=== PATIENT | female | born 1975 | race Caucasian/White ===

== ENCOUNTER 2016-12-01 12:49 | Inpatient (IN) ==
[2016-12-01 15:26] LABS: Basophils # 0.1 K/mcL (0.0-0.2); Basophils % 0.4 %; Eosinophils # 0.1 K/mcL (0.0-0.6); Eosinophils % 0.8 %; Hematocrit 46.8 % (35.3-44.9); Hemoglobin 15.5 g/dL (11.5-15.4); Immature Granulocytes % 0.3 % (0-4); Immature Platelets 2.9 % (1.1-6.1); Lymphocytes # 4.5 K/mcL (0.6-4.6); Lymphocytes % 37.8 %; Mean Corpuscular HGB Conc 33.1 g/dL (31.6-35.5); Mean Corpuscular Hemoglobin 31.4 pg (28.0-33.3); Mean Corpuscular Volume 94.9 fL (83.0-100.0); Monocytes # 0.7 K/mcL (0.0-1.3); Neutrophils # 6.5 K/mcL (1.6-8.9); Platelet Count 312 K/mcL (140-400); Red Blood Count 4.93 M/mcL (3.82-4.97); Red Cell Distribution Width 12.7 % (11.5-14.5); Segmented Neutrophils % 54.7 %
[2016-12-01 15:39] LABS: Alanine Aminotransferase 14 Units/L (0-55); Albumin 4.2 g/dL (3.5-5.0); Albumin/Globulin Ratio 1.1 (1.1-2.2); Alkaline Phosphatase 75 Units/L (38-126); Aspartate Amino Transferase 18 Units/L (5-34); BUN/Creatinine Ratio 13 (6-26); Bilirubin,Total 0.4 mg/dL (0.2-1.2); Blood Urea Nitrogen 9 mg/dL (7-20); Calcium 9.9 mg/dL (8.6-10.8); Carbon Dioxide 25 mEq/L (19-29); Chloride 106 mEq/L (98-109); Globulin 3.8 g/dL (2.4-3.5); Glucose 81 mg/dL (70-99); Osmolality,Calculated 290 (280-300); Potassium 4.1 mEq/L (3.5-4.5); Sodium 141 mEq/L (136-145); eGFR For African Americans > 60 (> 60); eGFR For Non-African Americans > 60 (> 60)
[2016-12-01] MEDS ORDERED: Ondansetron 4 MG/2 ML VIAL IVP ONE ×2 (15:45→19:29)
[2016-12-01] MEDS ORDERED: 0.9 % Sodium Chloride 1,000 ML IVC ONE (15:45)
[2016-12-01] MEDS ORDERED: *HR* Morphine 2 MG/ML SYRINGE IVP ONE (15:45)
[2016-12-01 15:56] LABS: Bilirubin,Urine Small (Negative); Blood,Urine Negative (Negative); Clarity,Urine Cloudy (Clear); Color,Urine Dark Yellow (Yellow); Glucose,Urine (UA) Normal (Normal); Ketones,Urine Trace mg/dL (Negative); Leukocyte Esterase,Urine Moderate (Negative); Nitrite,Urine Negative (Negative); Protein,Urine Trace mg/dL (Neg-Trace); Specific Gravity,Urine 1.023 (1.010-1.025); Urobilinogen,Urine Normal (Normal)
[2016-12-01 16:02] LABS: Bacteria,Urine Few per hpf (None-Few); RBC,Urine 0-3 per hpf (0-3); Squamous Epithelial Cell,Urine Many per lpf (None-Few); WBC,Urine 30-50 per hpf (0-3)
[2016-12-01 16:14] LABS: Mucus,Urine Moderate (Few); Yeast,Urine Few per hpf (None Seen)
--- NOTE | 2016-12-01 17:31 | Emergency Department Note ---
Disposition Clinical Impression: Right upper quadrant pain, Intractable abdominal pain Abdominal pain Qualifiers: Abdominal location: right upper quadrant Qualified Code(s): R10.11 - Right upper quadrant pain Disposition: Admitted As Inpatient Condition: Good Referrals: NO,PCP [Non-Partnered Physician] - Forms: Work/School Release, ED Satisfaction Letter Time of Disposition: 19:28 Abdominal Pain HPI - General Chief Complaint: ED Abdominal Pain Stated Complaint: abd pain, distention Time Seen by Provider: 12/01/16 13:58 Source: patient Mode of arrival: ambulatory Limitations: no limitations Nursing Notes Reviewed: Yes Vital Signs Reviewed: Yes - History of Present Illness HPI Narrative: Patient presents to emergency room complaining of right upper quadrant abdominal pain. Symptom onset was the last 24-48 hours. She has had inability to eat or drink anything for the last 3 days. Pain and progressed over the last 2 days. She denies any fevers or chills has had intermittent nausea and vomiting no diarrhea. Denies any chest pain shortness of breath headache or vision change. She has a history of infection or gallbladder in the past and thought that this might be a similar issue at this time. Denies any trauma or injuries Pt Subjective Complaint: abdominal pain Onset (ago): day(s) Consistency: constant Location: RUQ Pain Severity: moderate Pain Scale: 10 Quality: cramping, stabbing Radiation: RUQ, epigastric Migration to: no migration Improves with: nothing Worsens with: eating, vomiting, movement Context: history of similar episodes Associated symptoms: Reports: nausea, vomiting, chills, anorexia. Denies: diarrhea, fever, constipation, dysuria, hematemesis, hematochezia, melena, hematuria Treatments prior to arrival: none - Related Data Home Medications Medication Instructions Recorded Confirmed Amitriptyline HCl 150 mg PO HS 08/27/16 08/27/16 Butalbital/Aspirin/Caffeine 1 cap PO DAILY PRN 08/27/16 08/27/16 [Fiorinal 50-325-40 mg Capsule] Ferrous Sulfate [Iron] 325 mg PO DAILY 08/27/16 08/27/16 Gabapentin [Neurontin] 100 mg PO TID 08/27/16 08/27/16 Multivitamin [One Daily Essential] 1 tab PO DAILY 08/27/16 08/27/16 Oxycodone HCl/Acetaminophen 1 tab PO Q6HR PRN 08/27/16 08/27/16 [Percocet 5-325 mg Tablet] Promethazine [Phenergan] 25 mg PO Q12H PRN 08/27/16 08/27/16 Ranitidine HCl [Zantac] 150 mg PO BID 08/27/16 08/27/16 SUMAtriptan succinate [Imitrex] 6 mg SQ ONCE PRN 08/27/16 08/27/16 Tizanidine HCl 4 mg PO BID 08/27/16 08/27/16 Trazodone HCl 150 mg PO HS 08/27/16 08/27/16 diazePAM [Valium] 5 mg PO QID 08/27/16 08/27/16 Previous Rx's Medication Instructions Recorded Oxycodone HCl/Acetaminophen 1 each PO Q6HR PRN #28 tablet 08/27/16 [Percocet 10-325 mg Tablet] Allergies Allergy/AdvReac Type Severity Reaction Status Date / Time aripiprazole [From Abilify] Allergy Rash Verified 08/27/16 07:07 codeine Allergy See Verified 08/19/16 11:34 Comments haloperidol [From Haldol] Allergy Rash Verified 08/27/16 07:07 quetiapine [From Seroquel] Allergy Rash Verified 08/27/16 07:07 [place] Allergy Anaphylaxis Verified 08/19/16 11:34 Sulfa (Sulfonamide Allergy See Verified 08/19/16 11:34 Antibiotics) Comments All systems ED: reviewed and negative except as stated. Review of Systems: As Per HPI Constitutional: Reports: chills. Denies: fever Cardiovascular: Denies: chest pain, palpitations, dyspnea on exertion, orthopnea , edema Respiratory: Denies: cough, dyspnea, wheezes, hemoptysis, stridor, sputum production Gastrointestinal: Reports: abdominal pain, nausea, vomiting. Denies: diarrhea, constipation Genitourinary: Denies: urgency, dysuria Musculoskeletal: Denies: back pain, neck pain Neurological: Denies: headache Psychiatric: Denies: anxiety Abdominal Pain PMH - Past Medical History Medical history: Reports: migraine Female Surgical History: Reports: hysterectomy, other Psychiatric history: Reports: anxiety - Social History Smoking status: Current every day smoker Alcohol use: Reports: rarely Drug use: Reports: marijuana Physical Exam - General Limitations: no limitations General appearance: alert - Neck Neck exam: Present: normal inspection, full ROM, trachea midline. Absent: tenderness, meningismus, lymphadenopathy - Chest Chest inspection: Present: normal inspection, symmetric chest wall rise. Absent : tenderness - Respiratory Respiratory exam: Present: normal lung sounds bilaterally - Cardiovascular Cardiovascular exam: Present: regular rate, normal rhythm, normal heart sounds - Abdominal Exam Abdominal exam: Present: soft, Non-Tender, normal bowel sounds, Boo's sign. Absent: tenderness, distention, guarding, rebound, rigidity, Rovsing's sign, tenderness at McBurney's Point, pulsatile mass, hernia - Extremities Exam Extremities exam: Present: normal inspection, full ROM, normal capillary refill. Absent: tenderness - Back Exam Back exam: Present: normal inspection, full ROM. Absent: tenderness, CVA tenderness (R), CVA tenderness (L) - Neurological Exam Neurological exam: Present: alert, oriented X3, CN II-XII intact, normal gait - Skin Skin exam: Present: warm, dry, intact, normal color Course Course Narrative: Patient seen and examined with some arrival. See history of present illness. 40-year-old female presents with 3 days worth of anorexia home along with right upper quadrant abdominal pain. His progressive for now that she is unable to eat or drink anything at all. She has had intermittent chills but no fevers. Denies any chest pain shortness of breath headache vision changes or diarrhea. Main complaint on presentation his abdominal discomfort and pain with anorexia. Denies any trauma or injuries. She does have a history of what she described as a gallbladder infection that was not treated with surgical intervention. Patient denies any significant alcohol use she is a smoker denies any drugs of abuse at this time. Physical exam lungs are clear heart is regular abdomen is soft but tenderness is noted in the right upper quadrant concerning for positive Boo sign. There is no pulsatile lesions noted she does not have any signs of hernia bowel sounds are present all 4 quadrants she has no peritoneal symptoms or guarding noted on this exam except for the above-noted issues right upper quadrant. Patient was all 4 extremities with purpose. Symptoms appear to be at least initially concerning for possible gallbladder related disease or pancreatitis. Labs were ordered on the trails process and does not show any acute signs of elevated lipase or intra-abdominal obstructive pathology. The remainder of her labs are normal except for mildly elevated white blood cell count. Chest x-ray ordered along with EKG LFTs lipase urinalysis CBC and chemistry at this time. Right upper quadrant ultrasound ordered. Fluids premedication nausea medication to be given. Disposition pending workup and treatment course. Patient family and the patient went for another couple this plan - Reevaluation(s) Reevaluation #1: Patient has concerning findings on ultrasound with mildly dilated common bile duct and biliary sludge. Concerns are noted for choledocholithiasis although no stone was seen. CT imaging of the abdomen are this time considering there is no signs of obstructive pathology based on the laboratory workup at this point. Disposition pending symptom control and CT imaging at this time Time: 18:04 Reevaluation #2: CT imaging as well as the ultrasound findings were reviewed with the on-call surgeon. Recommend admission for medical management this time to transient liver function testing and then consultation either GI or surgery if the symptoms present themselves. Patient still having significant pain. Admission process to be completed this time for intractable pain with concern for early cholecystitis or biliary colic. Time: 19:27 Reevaluation #3: Patient discussed with the hospitalist Dr. lock. We reviewed the presentation symptoms and conversation I had with the on-call surgeon Dr. Hankins. Currently the patient will not be consult to do surgery but will have repeat LFTs and laboratory workup. At the symptoms progress or changes will determine whether this is surgical case for a gastroenterology case. Patient informed of this. Premedication nausea medication given repeat dose at this time. No other concerns or recommendations noted during this treatment course from the hospitals. We will continue to monitor in emergency room until the admission process is completed. Time: 19:52 Vital Signs Temperature 97.6 F 12/01/16 12:51 Pulse Rate 101 12/01/16 12:51 Respiratory Rate 12/01/16 12:51 Blood Pressure 144/101 12/01/16 12:51 O2 Sat by Pulse Oximetry 96 12/01/16 12:51 Temperature 97.6 F 12/01/16 12:51 Pulse Rate 83 12/01/16 16:44 Respiratory Rate 16 12/01/16 16:44 Blood Pressure 123/104 12/01/16 16:44 O2 Sat by Pulse Oximetry 96 12/01/16 16:44 Oxygen Delivery Oxygen Delivery Room Air Abdominal Pain - MDM Narrative Medical decision making narrative: Right upper quadrant abdominal pain. Nausea, vomiting - Medical Records Medical records reviewed: Yes I reviewed the patient's medical records. - Lab Data Lab results reviewed: Yes I reviewed the patient's lab results. Result diagrams: 12/01/16 15:18 12/01/16 15:18 Lab Results 12/01/16 12/01/16 12/01/16 Range/Units 15:18 15:18 15:48 WBC 11.9 H (4.3-11.1) K/mcL RBC 4.93 (3.82-4.97) M/mcL Hgb 15.5 H (11.5-15.4) g/dL Hct 46.8 H (35.3-44.9) % MCV 94.9 (83.0-100.0) fL MCH 31.4 (28.0-33.3) pg MCHC 33.1 (31.6-35.5) g/dL RDW 12.7 (11.5-14.5) % Plt Count 312 (140-400) K/mcL MPV 9.0 L (9.4-12.4) fL Immature Gran % 0.3 (0-4) % Seg Neutrophils % 54.7 % Lymphocytes % 37.8 % Monocytes % 6.0 % Eosinophils % 0.8 % Basophils % 0.4 % Neutrophils # 6.5 (1.6-8.9) K/mcL Lymphocytes # 4.5 (0.6-4.6) K/mcL Monocytes # 0.7 (0.0-1.3) K/mcL Eosinophils # 0.1 (0.0-0.6) K/mcL Basophils # 0.1 (0.0-0.2) K/mcL Immature Plt Fraction 2.9 (1.1-6.1) % Sodium 141 (136-145) mEq/L Potassium 4.1 (3.5-4.5) mEq/L Chloride 106 (98-109) mEq/L Carbon Dioxide 25 (19-29) mEq/L BUN 9 (7-20) mg/dL Creatinine 0.71 (0.57-1.11) mg/dL Est GFR ( Amer) > 60 (> 60) Est GFR (Non-Af Amer) > 60 (> 60) BUN/Creatinine Ratio 13 (6-26) Glucose 81 (70-99) mg/dL Calculated Osmolality 290 (280-300) Calcium 9.9 (8.6-10.8) mg/dL Total Bilirubin 0.4 (0.2-1.2) mg/dL AST 18 (5-34) Units/L ALT 14 (0-55) Units/L Alkaline Phosphatase 75 (38-126) Units/L Serum Total Protein 8.0 (6.0-8.3) g/dL Albumin 4.2 (3.5-5.0) g/dL Globulin 3.8 H (2.4-3.5) g/dL Albumin/Globulin Ratio 1.1 (1.1-2.2) Lipase (8-78) Units/L Urine Color Dark Yellow (Yellow) Urine Clarity Cloudy A (Clear) Urine pH 6.0 (5.0-8.0) pH Units Ur Specific Diamond 1.023 (1.010-1.025) Urine Protein Trace (Neg-Trace) mg/dL Urine Glucose (UA) Normal (Normal) mg/dL Urine Ketones Trace H (Negative) mg/dL Urine Blood Negative (Negative) Urine Nitrite Negative (Negative) Urine Bilirubin Small H (Negative) Urine Urobilinogen Normal (Normal) mg/dL Ur Leukocyte Esterase Moderate H (Negative) Urine Microscopic RBC 0-3 (0-3) per hpf Urine Microscopic WBC 30-50 H (0-3) per hpf Ur Squamous Epith Cells Many H (None-Few) per lpf Urine Bacteria Few (None-Few) per hpf Hyaline Casts Test Not Performed Urine Mucus Moderate H (Few) Urine Yeast Few H (None Seen) per hpf Ur Culture Indicated? YES A (NO) Urine Test (Negative) 12/01/16 12/01/16 Range/Units 15:48 16:04 WBC (4.3-11.1) K/mcL RBC (3.82-4.97) M/mcL Hgb (11.5-15.4) g/dL Hct (35.3-44.9) % MCV (83.0-100.0) fL MCH (28.0-33.3) pg MCHC (31.6-35.5) g/dL RDW (11.5-14.5) % Plt Count (140-400) K/mcL MPV (9.4-12.4) fL Immature Gran % (0-4) % Seg Neutrophils % % Lymphocytes % % Monocytes % % Eosinophils % % Basophils % % Neutrophils # (1.6-8.9) K/mcL Lymphocytes # (0.6-4.6) K/mcL Monocytes # (0.0-1.3) K/mcL Eosinophils # (0.0-0.6) K/mcL Basophils # (0.0-0.2) K/mcL Immature Plt Fraction (1.1-6.1) % Sodium (136-145) mEq/L Potassium (3.5-4.5) mEq/L Chloride (98-109) mEq/L Carbon Dioxide (19-29) mEq/L BUN (7-20) mg/dL Creatinine (0.57-1.11) mg/dL Est GFR ( Amer) (> 60) Est GFR (Non-Af Amer) (> 60) BUN/Creatinine Ratio (6-26) Glucose (70-99) mg/dL Calculated Osmolality (280-300) Calcium (8.6-10.8) mg/dL Total Bilirubin (0.2-1.2) mg/dL AST (5-34) Units/L ALT (0-55) Units/L Alkaline Phosphatase (38-126) Units/L Serum Total Protein (6.0-8.3) g/dL Albumin (3.5-5.0) g/dL Globulin (2.4-3.5) g/dL Albumin/Globulin Ratio (1.1-2.2) Lipase 16 (8-78) Units/L Urine Color (Yellow) Urine Clarity (Clear) Urine pH (5.0-8.0) pH Units Ur Specific Diamond (1.010-1.025) Urine Protein (Neg-Trace) mg/dL Urine Glucose (UA) (Normal) mg/dL Urine Ketones (Negative) mg/dL Urine Blood (Negative) Urine Nitrite (Negative) Urine Bilirubin (Negative) Urine Urobilinogen (Normal) mg/dL Ur Leukocyte Esterase (Negative) Urine Microscopic RBC (0-3) per hpf Urine Microscopic WBC (0-3) per hpf Ur Squamous Epith Cells (None-Few) per lpf Urine Bacteria (None-Few) per hpf Hyaline Casts Urine Mucus (Few) Urine Yeast (None Seen) per hpf Ur Culture Indicated? (NO) Urine Test Negative (Negative) - Radiology Data Radiology results reviewed: Yes I reviewed the patient's radiology results. Ultrasound is concerning for choledocholithiasis with mildly dilated common bile duct. CT imaging - EKG Data EKG attestation: Yes I reviewed and interpreted this EKG. EKG shows normal: sinus rhythm, axis, intervals, QRS complexes, ST-T waves Rate: normal Rhythm: NSR [place]/QRS: normal When compared to previous EKG there are: previous EKG unavailable Interpretation: normal EKG
[2016-12-01] MEDS ORDERED: *HR* HYDROmorphone (PF) 1 MG/ML SYRINGE IVP ONE ×2 (17:58→19:28)
[2016-12-01] MEDS ORDERED: Naloxone 0.4 MG/ML INJ IVP PRN (21:39)
--- NOTE | 2016-12-01 21:48 | Internal Med History&Physical ---
Date of Encounter: 12/01/16 Time of Encounter: 21:30 Assessment and Plan (1) Intractable abdominal pain Current visit: Yes Status: Acute Acute RUQ and epigastric pain associated with nausea and vomiting - possible early cholecystitis or biliary colic NPO, IV fluids, IV Morphine as needed for pain, IV Zofran when necessary IV Protonix, empiric IV Flagyl, IV Cipro EKG - normal sinus rhythm with no acute ST-T changes Chest x-ray - no acute process CT abdomen and pelvis - no acute abnormality, normal appendix Lipase - 16 LFTs - within normal limits Urinalysis - moderate amount of leukocyte esterase US gallbladder - mildly dilated common bile duct, without significant intrahepatic biliary dilation, small amount of gallbladder sludge without evidence of cholelithiasis or acute cholecystitis Patient may need further evaluation with MRCP for possible choledocholithiasis Gastroenterology consult pending Labs in a.m. (2) Chronic back pain Current visit: Yes Status: Chronic Chronic back pain - patient is on ibuprofen, gabapentin and tizanidine at home Qualifiers: Back pain location: low back pain Back pain laterality: bilateral Sciatica presence: without sciatica Qualified Code(s): M54.5 - Low back pain; G89.29 - Other chronic pain (3) Depression with anxiety Current visit: Yes Status: Chronic Depression with anxiety - patient takes amitriptyline, Xanax and trazodone at home (4) Migraine headache Current visit: Yes Status: Chronic Chronic migraine headaches - patient takes Imitrex and Fiorinal at home Qualifiers: Migraine type: without aura Status migrainosus presence: without status migrainosus Intractability: not intractable Qualified Code(s): G43.009 - Migraine without aura, not intractable, without status migrainosus (5) Tobacco abuse Current visit: Yes Status: Chronic Patient smokes about half pack of cigarettes daily - has been smoking for almost 20 years Counseled about cessation, nicotine patch (6) DVT prophylaxis Current visit: Yes Status: Acute Continue heparin subcutaneous Internal Medicine - H&P: HPI Chief complaint: Abdominal pain and vomiting Admitted From: Emergency Dept Plans for Post Hospital Care: Home History of present illness: Ms. Alicea is a 40 year old female with past medical history of anxiety, depression, chronic back pain, migraine headaches and history of possible endometrial cancer status post hysterectomy. Patient presents to the ED with complaints of abdominal pain and vomiting. On examination patient is awake and alert. Not in any distress. Able to provide history. No family members at bedside. Patient is in obvious discomfort due to abdominal pain. She states abdominal pain started about 5 days ago and is gradually worsened. She also developed nausea and vomiting about 4 days ago. Had several episodes of vomiting. Symptoms are worse with food intake. No alleviating factors. Patient states she has not had any by mouth intake for the past 4 days. She also complains of diarrhea. She states her emesis is yellow colored, denies any blood. Abdominal pain seems to be mainly in the epigastric region and RUQ region, and radiates to both sides and to her back. She describes the pain as sharp and cramping and almost constant. She rates it a 9 out of 10. Patient states she was initially thinking about coming to the ER over the past few days but finally decided to come today because she could not take it anymore. Also complains of subjective fever and chills. Denies chest pain a month denies shortness of breath, denies palpitations, denies cough or dizziness or headache. No other associated symptoms. Initial ED evaluation revealed slightly elevated white count. CT of the abdomen and pelvis revealed no acute abnormality. Chest x-ray is negative. Ultrasound gallbladder revealed a mildly dilated common bile duct without significant intrahepatic biliary dilation and small amount of sludge in the gallbladder without evidence of cholelithiasis or acute cholecystitis. Patient is being admitted for intractable RUQ pain and nausea and vomiting. Patient will be nothing by mouth, continue IV fluids and empiric antibiotics. Morphine as needed for pain and Zofran as needed for nausea and vomiting. Patient has been explained about her condition and plan of care. She understood and agreed. No unanswered questions. CODE STATUS full code. Past Med Surg Social Fam HX - Past Medical History Medical history: migraine, other (Chronic back pain) Psychiatric history: anxiety, depression - Past Surgical History Surgical History: , hysterectomy, orthopedic, other (Left ankle fracture repair, right leg fracture repair), JANET/BSO - Social History Smoking Status: Current every day smoker Smokeless Tobacco Status: No Alcohol use: rarely Drug use: marijuana - Family History Mother Hx Family Medical Disorders: Yes (Diabetes) Internal Medicine - H&P: Meds Amitriptyline HCl 150 mg PO HS 08/27/16 [History] Butalbital/Aspirin/Caffeine [Fiorinal 50-325-40 mg Capsule] 1 cap PO DAILY PRN 08/27/16 [History] Promethazine [Phenergan] 25 mg PO Q12H PRN 08/27/16 [History] Ranitidine HCl [Zantac] 150 mg PO BID 08/27/16 [History] SUMAtriptan succinate [Imitrex] 6 mg SQ ONCE PRN 08/27/16 [History] Tizanidine HCl 4 mg PO BID 08/27/16 [History] Trazodone HCl 300 mg PO HS 08/27/16 [History] ALPRAZolam [Xanax 0.5 MG Tablet] 0.5 mg PO BID 12/01/16 [History] Gabapentin [Neurontin] 300 mg PO TID 12/01/16 [History] Ibuprofen [Ibuprofen] 800 mg PO TID PRN 12/01/16 [History] Allergies aripiprazole [From Abilify] Allergy (Verified 12/01/16 19:58) Rash codeine Allergy (Verified 12/01/16 19:58) See Comments RASH haloperidol [From Haldol] Allergy (Verified 12/01/16 19:58) Rash quetiapine [From Seroquel] Allergy (Verified 12/01/16 19:58) Rash [place] Allergy (Verified 12/01/16 19:58) Anaphylaxis Sulfa (Sulfonamide Antibiotics) Allergy (Verified 12/01/16 19:58) See Comments RASH All Systems PM: A 10-system review of systems was performed and is negative for pertinent findings except as documented above in the HPI. - Constitutional Constitutional: fatigue, fever(s), weakness - EENT Eyes: no blurry vision - Cardiovascular Cardiovascular ROS IM: no chest pain, no diaphoresis, no dyspnea, no dyspnea on exertion, no edema, no lightheadedness, no orthopnea, no syncope - Respiratory Respiratory: no cough, no dyspnea, no hemoptysis, no dyspnea on exertion, no wheezing, no chest congestion - Gastrointestinal Gastrointestinal: abdominal pain, cramping, diarrhea, dyspepsia, loose stools, nausea, vomiting, no bloating, no hematochezia, no melena - Genitourinary Genitourinary: no dysuria - Musculoskeletal Musculoskeletal ROS IM: back pain - Neurological Neurological ROS: no abnormal gait, no abnormal speech, no confusion, no dizziness, no focal weakness, no numbness, no tingling - Psychiatric Psychiatric: anxiety, depression - Constitutional Vitals: Temp Pulse Resp BP Pulse Ox 98.3 F 67 16 155/84 96 12/01/16 21:04 12/01/16 21:04 12/01/16 21:04 12/01/16 21:04 12/01/16 21:04 General appearance: Present: A&O X 3, no acute distress, answers questions appropriately Exam: Gen. well-appearing, in discomfort due to abdominal pain - Head Head exam: Present: atraumatic - Eye Eye exam: Present: EOMI - ENT ENT exam: Present: mucous membranes dry - Neck Neck exam general surgery: Present: supple - Respiratory Respiratory exam: Present: CTAB. Absent: rales, rhonchi, wheezes, tachypnea - Cardiovascular Cardiovascular exam: Present: RRR, +S1, +S2 - GI/Abdominal GI/Abdominal exam: Present: rebound (Right upper quadrant), soft, tenderness ( Tenderness in epigastric region and right upper quadrant region), no peritoneal signs. Absent: distended, firm, guarding, rigid Additional comments: Bowel sounds present in all 4 quadrants. - Extremities Exam Extremities exam: Present: radial pulses palpable and symetrical. Absent: cyanotic, pedal edema, tenderness - Neurological Exam Neurological exam: Present: alert, oriented X3, no focal deficits. Absent: facial droop, speech deficit Internal Med - H&P Results - Labs CBC & Chem 7: 12/01/16 15:18 12/01/16 15:18
[2016-12-01] MEDS: *HR* Morphine 2 MG/ML SYRINGE IVP PRN (22:17)
[2016-12-01] MEDS: Pantoprazole 40 MG VIAL IVP SCH (22:17)
[2016-12-01] MEDS: Ondansetron 4 MG/2 ML VIAL IVP PRN (22:17)
[2016-12-01] MEDS: 0.9 % Sodium Chloride 1,000 ML IVC SCH (22:36)
[2016-12-02] MEDS ORDERED: *HR* HYDROmorphone (PF) 1 MG/ML SYRINGE IVP ONE (00:23)
[2016-12-02] MEDS: *HR* LORazepam 2 MG/ML VIAL IVP PRN ×2 (00:31→09:03)
[2016-12-02] MEDS: Nicotine 14 MG PATCH.TD24 TD SCH ×2 (00:32→08:24)
[2016-12-02] MEDS: MetroNIDAZOLE 500 MG/100 ML 500 MG/100 ML BAG IVPB SCH ×4 (00:32→23:32)
[2016-12-02] MEDS: *HR* Morphine 2 MG/ML SYRINGE IVP PRN ×2 (02:15→06:10)
[2016-12-02] MEDS ORDERED: *HR* Promethazine 25 MG/ML VIAL IVP ONE ×2 (02:29→17:34)
[2016-12-02] MEDS: *HR* Heparin 5,000 UNIT/ML VIAL SQ SCH ×2 (06:11→18:23)
[2016-12-02 08:18] LABS: Prothrombin Time 11.2 Seconds (9.4-12.1)
[2016-12-02 08:20] LABS: Hematocrit 42.2 % (35.3-44.9); Mean Corpuscular Hemoglobin 31.3 pg (28.0-33.3); Mean Corpuscular Volume 97.7 fL (83.0-100.0); Mean Platelet Volume 9.7 fL (9.4-12.4); Platelet Count 243 K/mcL (140-400); Red Blood Count 4.32 M/mcL (3.82-4.97); Red Cell Distribution Width 12.6 % (11.5-14.5)
[2016-12-02] MEDS: Pantoprazole 40 MG VIAL IVP SCH ×2 (08:23→20:42)
[2016-12-02 08:33] LABS: Alanine Aminotransferase 12 Units/L (0-55); Albumin 3.4 g/dL (3.5-5.0); Albumin/Globulin Ratio 1.1 (1.1-2.2); Alkaline Phosphatase 60 Units/L (38-126); Aspartate Amino Transferase 17 Units/L (5-34); BUN/Creatinine Ratio 16 (6-26); Blood Urea Nitrogen 12 mg/dL (7-20); Calcium 8.7 mg/dL (8.6-10.8); Carbon Dioxide 23 mEq/L (19-29); Chloride 107 mEq/L (98-109); Chol/HDL Ratio 3.9 (0-4.9); Cholesterol 181 mg/dL (< 200); Glucose 85 mg/dL (70-99); HDL Cholesterol 47 mg/dL (40-59); LDL Cholesterol,Calculated 110 mg/dL (0-99); Magnesium 1.7 mg/dL (1.6-2.6); Osmolality,Calculated 285 (280-300); Potassium 3.7 mEq/L (3.5-4.5); Sodium 138 mEq/L (136-145); Total Protein 6.4 g/dL (6.0-8.3); Triglycerides 118 mg/dL (< 150); eGFR For African Americans > 60 (> 60); eGFR For Non-African Americans > 60 (> 60)
[2016-12-02 08:39] LABS: Hemoglobin 13.5 g/dL (11.5-15.4)
[2016-12-02] MEDS ORDERED: *HR* HYDROmorphone (PF) 1 MG/ML SYRINGE IVP PRN (09:23)
[2016-12-02 09:29] LABS: Bilirubin,Total 0.4 mg/dL (0.2-1.2)
[2016-12-02] MEDS ORDERED: SUMAtriptan 6 MG/0.5 ML SQ PRN (10:59)
[2016-12-02] MEDS: *HR* HYDROmorphone (PF) 1 MG/ML SYRINGE IVP PRN ×3 (11:30→20:42)
[2016-12-02] MEDS: Ondansetron 4 MG/2 ML VIAL IVP PRN ×2 (11:30→20:42)
[2016-12-02] MEDS: 0.9 % Sodium Chloride 1,000 ML IVC SCH (15:25)
--- NOTE | 2016-12-02 16:49 | Internal Med Progress Note ---
Date of Encounter: 12/02/16 Time of Encounter: 11:00 - Assessment and plan (1) Right upper quadrant pain Current Visit: Yes Status: Acute Assessment and plan: CT abdomen/pelvis showed no acute abnormality. Right upper quadrant ultrasound shows gallbladder sludge, mild delegation of CBD at 7 mm, with no definitive evidence of gallstones or acute cholecystitis. Continue bowel rest and IV hydration. We will change pain medications to IV Dilaudid 1 mg every 4 hours as needed. Supportive care and when necessary antiemetics. Case discussed with GI, plan for EGD today to rule out gastritis/peptic ulcer disease due to epigastric tenderness. Follow-up MRCP. (2) Chronic back pain Current Visit: Yes Status: Chronic Assessment and plan: Continue pain control as above. Patient is noted to be on muscle relaxants and gabapentin at home. Qualifiers: Back pain location: low back pain Back pain laterality: bilateral Sciatica presence: without sciatica Qualified Code(s): M54.5 - Low back pain; G89.29 - Other chronic pain (3) Depression with anxiety Current Visit: Yes Status: Chronic Assessment and plan: Continue home regimen of antidepressants, anxiolytics and psychotropic medications. (4) Migraine headache Current Visit: Yes Status: Acute Assessment and plan: Will give 1 dose of subcutaneous sumatriptan and continue to monitor. Qualifiers: Migraine type: without aura Status migrainosus presence: without status migrainosus Intractability: not intractable Qualified Code(s): G43.009 - Migraine without aura, not intractable, without status migrainosus (5) Tobacco abuse Current Visit: Yes Status: Chronic Assessment and plan: Continue nicotine transdermal patch. - Subjective Interval history: Noted to be crying due to severe abdominal pain. Reports no relief from IV morphine or Dilaudid, requests to increase the dose of pain medication. Also reports severe migraine headache and requests Imitrex. - Constitutional Vitals: Temp Pulse Resp BP Pulse Ox 98.1 F 71 16 115/78 97 12/02/16 15:00 12/02/16 15:00 12/02/16 15:00 12/02/16 15:00 12/02/16 15:00 General appearance: Present: mild distress, A&O X 3, answers questions appropriately - Respiratory Respiratory exam: Present: CTAB. Absent: accessory muscle use, rales, rhonchi, wheezes - Cardiovascular Cardiovascular exam: Present: RRR, +S1, +S2. Absent: diastolic murmur, gallop, rubs, systolic murmur - GI/Abdominal GI/Abdominal exam: Present: normal bowel sounds, soft (Mild tenderness noted in the epigastrium and right upper quadrant. No guarding or rigidity. No rebound tenderness.), no peritoneal signs. Absent: distended, tenderness - Extremities Exam Extremities exam: Present: full ROM, warm, radial pulses palpable and symetrical. Absent: calf tenderness, cyanotic, pedal edema Internal Medicine: Result - Labs CBC & Chem 7: 12/02/16 07:56 12/02/16 07:56 Labs: Short CBC 12/02/16 Range/Units 07:56 WBC 9.3 (4.3-11.1) K/mcL Hgb 13.5 D (11.5-15.4) g/dL Hct 42.2 (35.3-44.9) % Plt Count 243 (140-400) K/mcL BMP 12/02/16 07:56 Sodium 138 Potassium 3.7 Chloride 107 Carbon Dioxide 23 BUN 12 Creatinine 0.75 Glucose 85 Calcium 8.7 Liver Function 12/02/16 Range/Units 07:56 Total Bilirubin 0.4 (0.2-1.2) mg/dL AST 17 (5-34) Units/L ALT 12 (0-55) Units/L Alkaline Phosphatase 60 (38-126) Units/L Albumin 3.4 L (3.5-5.0) g/dL - ABG Interpretation ABG results: PT/INR, D-dimer PT 11.2 Seconds (9.4-12.1) 12/02/16 07:56 - Impressions Impressions Abdomen MRI 12/02/16 10:19 IMPRESSION: No cholelithiasis or choledocholithiasis Suspected renal cyst D/ / Germain Wilson MD / Germain Wilson MD Interpreting Provider: Germain Wilson MD Consult Discharge Plan - Plan Referrals: Haroon Aranda MD [Primary Care Provider] -
[2016-12-02] MEDS ORDERED: *HR* Midazolam HCl 5 MG/5 ML VIAL IVP ONE (17:07)
[2016-12-02] MEDS ORDERED: *HR* FentaNYL (PF) 100 MCG/2 ML VIAL ONE (17:07)
[2016-12-02] MEDS ORDERED: Simethicone 40 MG/0.6 ML MLS IR ONE (17:15)
[2016-12-02] MEDS ORDERED: Tetracaine/Benzocaine/Butamben 200MG/SPRAY (100SPY/BOT) MM ONE (17:15)
[2016-12-02] MEDS: *HR* FentaNYL (PF) 100 MCG/2 ML VIAL IVP PRN ×3 (17:20→17:25)
[2016-12-02] MEDS: *HR* Midazolam HCl 5 MG/5 ML VIAL IVP PRN ×3 (17:20→17:25)
[2016-12-02] MEDS ORDERED: *HR* Promethazine 25 MG/ML VIAL ONE (17:29)
--- NOTE | 2016-12-02 17:39 | Electrocardiograph Report ---
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
--- NOTE | 2016-12-02 18:09 | Event Note ---
Date of Encounter: 12/02/16 Time of Encounter: 15:00 Pt seen, full consult to follow. Patient with on and off abdominal pain that would respond to Zantac now presented with acute onset of upper abdominal pain. This take NSAIDs and was taking it more frequently for her left ankle pain. Rule out peptic ulcer disease NSAID-induced. Recommendation EGD and if negative then she will need the surgical input for possible gallbladder etiology.
[2016-12-02] MEDS ORDERED: *HR* Morphine 2 MG/ML SYRINGE IVP ONE (18:14)
[2016-12-02] MEDS: traZODone 50 MG TABLET PO SCH (20:42)
[2016-12-02] MEDS: Gabapentin 300 MG CAPSULE PO SCH (20:43)
[2016-12-02] MEDS: Sucralfate 1 GM TABLET PO SCH (20:43)
[2016-12-03 05:16] LABS: Basophils % 0.6 %; Eosinophils # 0.2 K/mcL (0.0-0.6); Eosinophils % 2.8 %; Hematocrit 37.4 % (35.3-44.9); Hemoglobin 12.3 g/dL (11.5-15.4); Immature Granulocytes % 0.2 % (0-4); Lymphocytes # 3.6 K/mcL (0.6-4.6); Lymphocytes % 56.1 %; Mean Corpuscular HGB Conc 32.9 g/dL (31.6-35.5); Mean Corpuscular Hemoglobin 32.9 pg (28.0-33.3); Mean Platelet Volume 9.7 fL (9.4-12.4); Monocytes # 0.5 K/mcL (0.0-1.3); Neutrophils # 2.1 K/mcL (1.6-8.9); Platelet Count 255 K/mcL (140-400); Red Blood Count 3.74 M/mcL (3.82-4.97); Red Cell Distribution Width 12.7 % (11.5-14.5); Segmented Neutrophils % 32.3 %
[2016-12-03] MEDS: 0.9 % Sodium Chloride 1,000 ML IVC SCH (05:20)
[2016-12-03] MEDS: *HR* Heparin 5,000 UNIT/ML VIAL SQ SCH ×2 (05:20→18:05)
[2016-12-03] MEDS: *HR* HYDROmorphone (PF) 1 MG/ML SYRINGE IVP PRN ×2 (05:36→19:10)
[2016-12-03] MEDS: Sucralfate 1 GM TABLET PO SCH ×4 (05:36→22:45)
[2016-12-03] MEDS ORDERED: ASPIRIN PO PRN (08:19)
[2016-12-03] MEDS ORDERED: BUTALBITAL PO PRN (08:19)
[2016-12-03] MEDS ORDERED: CAFFEINE PO PRN (08:19)
[2016-12-03] MEDS: Gabapentin 300 MG CAPSULE PO SCH ×3 (08:21→22:44)
[2016-12-03] MEDS: MetroNIDAZOLE 500 MG/100 ML 500 MG/100 ML BAG IVPB SCH ×2 (08:22→16:24)
[2016-12-03] MEDS: Pantoprazole 40 MG VIAL IVP SCH ×2 (08:22→22:44)
[2016-12-03 08:31] LABS: Blood Urea Nitrogen 10 mg/dL (7-20); Carbon Dioxide 26 mEq/L (19-29); Chloride 110 mEq/L (98-109); Potassium 4.2 mEq/L (3.5-4.5); Sodium 141 mEq/L (136-145)
[2016-12-03 08:32] LABS: BUN/Creatinine Ratio 14 (6-26); Calcium 8.5 mg/dL (8.6-10.8); Glucose 114 mg/dL (70-99); Osmolality,Calculated 292 (280-300); eGFR For African Americans > 60 (> 60); eGFR For Non-African Americans > 60 (> 60)
[2016-12-03] MEDS: tiZANidine 4 MG TABLET PO SCH ×2 (08:33→22:45)
[2016-12-03] MEDS: ALPRAZolam 0.5 MG TABLET PO SCH ×2 (08:33→22:44)
[2016-12-03] MEDS ORDERED: Acetaminophen/Butalbital/CaffeineTABLET PO PRN (08:56)
[2016-12-03] MEDS: Nicotine 14 MG PATCH.TD24 TD SCH (09:00)
[2016-12-03] MEDS: *HR* Morphine 2 MG/ML SYRINGE IVP PRN ×3 (09:12→17:45)
--- NOTE | 2016-12-03 09:14 | Gastroenterology Consult Note ---
<Cathi Del Real - Last Filed: 12/03/16 11:18> Date of Encounter: 12/03/16 Time of Encounter: 10:40 - Assessment and plan (1) PUD (peptic ulcer disease) Current Visit: Yes Status: Acute Assessment and plan: Likely NSAID induced. No NSAIDs, PPI bid x 3 months, carafate 1 gm bid x 1 month , repeat EGD x 2 months. (2) Right upper quadrant pain Current Visit: Yes Status: Acute Assessment and plan: HIDA - Time Spent With Patient Total time spent is greater than 50% in coordination of care (as documented) at patient's floor/unit and/or counseling patient: less than 15 minutes GI History of Present Illness - Data of Consult Patient: new to practice Consult date: 12/03/16 Requesting Physician: Janie Stewart MD - Consult Narrative Reason for consult: abdominal pain History of present illness: Ms. Alicea is a 40 year old female with past medical history of anxiety, depression, chronic back pain, migraine headaches and history of possible endometrial cancer status post hysterectomy. Patient presented to the ED with complaints of abdominal pain and vomiting. She states abdominal pain started about 6 days ago and is gradually worsened. She also developed nausea and vomiting about 5 days ago. Had several episodes of vomiting. Symptoms are worse with food intake. No alleviating factors. Patient states she has not had any by mouth intake for the 4 days prior to her presentation to ED. She also complains of diarrhea. She states her emesis is yellow colored, denies any blood. Abdominal pain seems to be mainly in the epigastric region and RUQ region, and radiates to both sides and to her back. She describes the pain as sharp and cramping and almost constant. She rates it a 9 out of 10. Patient states she was initially thinking about coming to the ER over the past few days but finally decided to come yesterday because she could not take it anymore. Also complains of subjective fever and chills. Denies chest pain a month denies shortness of breath, denies palpitations, denies cough or dizziness or headache. No other associated symptoms. Patient underwent EGD with Dr. Grant yesterday evening at which time it was discovered she had some PUD. Patient continues to complain of RUQ abdominal pain that radiates to her back, some nausea, no vomiting currently. Colonoscopy: None noted EGD: 11/2016 - Gul - PUD Past Med Surg Social Fam HX - Past Medical History Medical history: migraine, other (Chronic back pain) Psychiatric history: anxiety, depression - Past Surgical History Surgical History: , hysterectomy, orthopedic, other (Left ankle fracture repair, right leg fracture repair), JANET/BSO - Social History Smoking Status: Current every day smoker Packs per day: 1 Smokeless Tobacco Status: No Alcohol use: rarely Drug use: marijuana - Family History Mother Living Status: Age at : 34 Cause of : murdered Hx Family Endocrine Disorder: Yes Hx Family Musculoskeletal Disorders: Yes (back problem) Hx Family Psychosocial Disorders: (depression, anxiety) Hx Family Medical Disorders: (breast cysts) Father Age: 62 Living Status: Still Living Hx Family Cardiac Disorders: Yes (heart attack, stroke, heart disease.) Hx Family Respiratory Disorders: No Hx Family Cancer: No Hx Family Endocrine Disorder: Yes (diabetes) Hx Family Psychosocial Disorders: Yes (ptsd) - Gastrointestinal NSAID use: Yes - increased use d/t ankle pain Anticoagulation Use: None noted Number of BM Per Day: daily Gastrointestinal: Present: abdominal pain, nausea, vomiting - Constitutional Constitutional: as per HPI - EENT Eyes: as per HPI Ears: Present: as per HPI Nose, mouth and throat: Present: as per HPI - Cardiovascular Cardiovascular ROS: Present: as per HPI - Respiratory Respiratory IM: Present: as per HPI - Neurological ROS Neurological GI: Present: as per HPI - Hematologic/Lymphatic Hematologic/Lymphatic pediatric: Present: as per HPI - Musculoskeletal Musculoskeletal ROS GI: Present: back pain - Integumentary Integumentary GI: Present: as per HPI - Psychiatric ROS Psychiatric GI: Present: as per HPI - Endocrine Endocrine IM: Present: as per HPI - Constitutional Vitals: Temp Pulse Resp BP Pulse Ox 98.5 F 66 17 97/61 96 12/03/16 08:12 12/03/16 08:12 12/03/16 08:12 12/03/16 08:12 12/03/16 08:12 General appearance: Present: cooperative, mild distress, A&O X 3, answers questions appropriately - Head Head exam: Present: atraumatic, normocephalic - Eye Eye exam: Present: normal appearance, sclera anicteric - ENT ENT exam: Present: mucous membranes moist - Neck Neck exam general surgery: Present: normal inspection, trachea midline - Respiratory Respiratory exam: Present: CTAB - Cardiovascular Cardiovascular exam: Present: RRR, +S1, +S2 - GI/Abdominal GI/Abdominal exam: Present: soft, tenderness, no peritoneal signs - Rectal Rectal exam: Present: deferred - Extremities Exam Extremities exam: Present: warm - Neurological Exam Neurological exam: Present: no focal deficits - Psychiatric Psychiatric exam: Present: normal affect, normal mood - Skin Skin exam: Present: dry, intact, normal color, warm Results - Labs CBC & Chem 7: 12/03/16 04:21 12/03/16 06:36 Labs: Last Result Calcium 8.5 mg/dL (8.6-10.8) L 12/03/16 06:36 Triglycerides 118 mg/dL (< 150) 12/02/16 07:56 Entire Visit Hgb 12.3 g/dL (11.5-15.4) 12/03/16 04:21 Hct 37.4 % (35.3-44.9) 12/03/16 04:21 PT 11.2 Seconds (9.4-12.1) 12/02/16 07:56 Total Bilirubin 0.4 mg/dL (0.2-1.2) 12/02/16 07:56 AST 17 Units/L (5-34) 12/02/16 07:56 ALT 12 Units/L (0-55) 12/02/16 07:56 Lipase 16 Units/L (8-78) 12/01/16 16:04 - ABG ABG results: PT/INR, D-dimer PT 11.2 Seconds (9.4-12.1) 12/02/16 07:56 - Impressions Impressions Abdomen MRI 12/02/16 10:19 IMPRESSION: No cholelithiasis or choledocholithiasis Suspected renal cyst D/ / Germain Wilson MD / Germain Wilson MD Interpreting Provider: Germain Wilson MD Consult Discharge Plan - Plan Referrals: Haroon Aranda MD [Primary Care Provider] - <Park Grant - Last Filed: 12/03/16 19:11> Date of Encounter: 12/03/16 Time of Encounter: 18:30 - Time Spent With Patient Total time spent is greater than 50% in coordination of care (as documented) at patient's floor/unit and/or counseling patient: GI History of Present Illness - Data of Consult Requesting Physician: Janie Stewart MD - Consult Narrative History of present illness: Ms. Alicea is a 40 year old female - Constitutional Vitals: Temp Pulse Resp BP Pulse Ox 98.6 F 86 20 133/90 96 12/03/16 11:42 12/03/16 17:30 12/03/16 11:42 12/03/16 17:30 12/03/16 11:42 Results - Labs CBC & Chem 7: 12/03/16 04:21 12/03/16 06:36 Labs: Last Result Calcium 8.5 mg/dL (8.6-10.8) L 12/03/16 06:36 Triglycerides 118 mg/dL (< 150) 12/02/16 07:56 Entire Visit Hgb 12.3 g/dL (11.5-15.4) 12/03/16 04:21 Hct 37.4 % (35.3-44.9) 12/03/16 04:21 PT 11.2 Seconds (9.4-12.1) 12/02/16 07:56 Total Bilirubin 0.4 mg/dL (0.2-1.2) 12/02/16 07:56 AST 17 Units/L (5-34) 12/02/16 07:56 ALT 12 Units/L (0-55) 12/02/16 07:56 Lipase 16 Units/L (8-78) 12/01/16 16:04 - ABG ABG results: PT/INR, D-dimer PT 11.2 Seconds (9.4-12.1) 12/02/16 07:56 - Attending Attestation I examined this patient and my medical decision-making was reviewed with the Resident Physician. I agree with the documented findings, disposition and treatment plan as described except to the extent set forth below. With the midabdominal pain with radiation to the back. So far extensive workup including CT scan and MRCP ultrasound has been normal. EGD showed peptic ulcer disease. Per patient current pain medications are not helping. On examination abdomen is soft no distention. On examination of the spine no focal tenderness was appreciated. CT of the abdomen or IV contrast as CT was done without contrast earlier
[2016-12-03] MEDS: *HR* OxyCODONE/APAP 5/325 TABLET PO PRN ×2 (11:03→18:37)
[2016-12-03] MEDS: Ondansetron 4 MG/2 ML VIAL IVP PRN (13:10)
[2016-12-03] MEDS: D5% in 0.45% NACL 1,000 ML IVC SCH (13:47)
--- NOTE | 2016-12-03 16:24 | Internal Med Progress Note ---
Date of Encounter: 12/03/16 Time of Encounter: 12:10 - Assessment and plan (1) Right upper quadrant pain Current Visit: Yes Status: Acute Assessment and plan: CT abdomen/pelvis showed no acute abnormality. Right upper quadrant ultrasound shows gallbladder sludge, mild delegation of CBD at 7 mm, with no definitive evidence of gallstones or acute cholecystitis. MRCP shows no evidence of biliary dilatation or choledocholithiasis. Continue bowel rest and IV hydration , pain control with PRN IV Morphine and PO Percocet. Supportive care and when necessary antiemetics. GI on board, patient underwent EGD yesterday due to NSAID use at home along with epigastric pain-showed significant gastritis and peptic ulcers and stomach and duodenal bulb. Continue twice daily IV Protonix along with sucralfate. patient continues to have abdominal pain. We will get nuclear medicine hepatobiliary scan to assess for acute cholecystitis. (2) Chronic back pain Current Visit: Yes Status: Chronic Assessment and plan: Continue pain control as above. Patient is noted to be on muscle relaxants and gabapentin at home. Qualifiers: Back pain location: low back pain Back pain laterality: bilateral Sciatica presence: without sciatica Qualified Code(s): M54.5 - Low back pain; G89.29 - Other chronic pain (3) Depression with anxiety Current Visit: Yes Status: Chronic Assessment and plan: Continue home regimen of antidepressants, anxiolytics and psychotropic medications. (4) Migraine headache Current Visit: Yes Status: Acute Assessment and plan: Continue PRN Fioricet and Sumatriptan. Qualifiers: Migraine type: without aura Status migrainosus presence: without status migrainosus Intractability: not intractable Qualified Code(s): G43.009 - Migraine without aura, not intractable, without status migrainosus (5) Tobacco abuse Current Visit: Yes Status: Chronic Assessment and plan: Continue nicotine transdermal patch. - Subjective Interval history: Continues to report significant abdominal pain. Noted to be resting quietly when alone but begins to report severe pain when medical staff walks in. No vomiting or diarrhea. Underwent EGD yesterday, showed significant gastric and duodenal ulcers. - Constitutional Vitals: Temp Pulse Resp BP Pulse Ox 98.6 F 62 20 96/60 96 12/03/16 11:42 12/03/16 11:42 12/03/16 11:42 12/03/16 11:42 12/03/16 11:42 General appearance: Present: mild distress, A&O X 3, answers questions appropriately - Respiratory Respiratory exam: Present: CTAB. Absent: accessory muscle use, rales, rhonchi, wheezes - Cardiovascular Cardiovascular exam: Present: RRR, +S1, +S2. Absent: diastolic murmur, gallop, rubs, systolic murmur - GI/Abdominal GI/Abdominal exam: Present: normal bowel sounds, soft (tenderness in RUQ and epigastrium), no peritoneal signs. Absent: distended, tenderness - Extremities Exam Extremities exam: Present: full ROM, warm, radial pulses palpable and symetrical. Absent: calf tenderness, cyanotic, pedal edema Internal Medicine: Result - Labs CBC & Chem 7: 12/03/16 04:21 12/03/16 06:36 Labs: Short CBC 12/03/16 Range/Units 04:21 WBC 6.4 (4.3-11.1) K/mcL Hgb 12.3 (11.5-15.4) g/dL Hct 37.4 (35.3-44.9) % Plt Count 255 (140-400) K/mcL Neutrophils # 2.1 (1.6-8.9) K/mcL BMP 12/03/16 06:36 Sodium 141 Potassium 4.2 Chloride 110 H Carbon Dioxide 26 BUN 10 Creatinine 0.74 Glucose 114 H Calcium 8.5 L - ABG Interpretation ABG results: PT/INR, D-dimer PT 11.2 Seconds (9.4-12.1) 12/02/16 07:56 Consult Discharge Plan - Plan Referrals: Haroon Aranda MD [Primary Care Provider] -
[2016-12-03] MEDS ORDERED: *HR* LORazepam 2 MG/ML VIAL IVP ONE (18:25)
[2016-12-03] MEDS ORDERED: *HR* Morphine 2 MG/ML SYRINGE IVP ONE (21:10)
[2016-12-03] MEDS: traZODone 50 MG TABLET PO SCH (22:44)
[2016-12-04] MEDS: MetroNIDAZOLE 500 MG/100 ML 500 MG/100 ML BAG IVPB SCH ×4 (00:08→23:38)
[2016-12-04] MEDS: *HR* HYDROmorphone (PF) 1 MG/ML SYRINGE IVP PRN ×3 (07:58→18:51)
[2016-12-04] MEDS: Sucralfate 1 GM TABLET PO SCH ×4 (07:58→21:05)
[2016-12-04] MEDS: Gabapentin 300 MG CAPSULE PO SCH ×3 (07:58→21:05)
[2016-12-04] MEDS: tiZANidine 4 MG TABLET PO SCH ×2 (07:59→21:05)
[2016-12-04] MEDS: ALPRAZolam 0.5 MG TABLET PO SCH (07:59)
[2016-12-04] MEDS: Pantoprazole 40 MG VIAL IVP SCH ×2 (07:59→21:04)
[2016-12-04] MEDS: Ondansetron 4 MG/2 ML VIAL IVP PRN (07:59)
[2016-12-04] MEDS: *HR* Heparin 5,000 UNIT/ML VIAL SQ SCH ×2 (07:59→18:48)
[2016-12-04] MEDS: Nicotine 14 MG PATCH.TD24 TD SCH (08:02)
[2016-12-04] MEDS: *HR* OxyCODONE/APAP 5/325 TABLET PO PRN ×2 (10:47→20:04)
[2016-12-04] MEDS: D5% in 0.45% NACL 1,000 ML IVC SCH (10:51)
--- NOTE | 2016-12-04 13:26 | General Surgery Consult Note ---
<Osmin De Leon - Last Filed: 12/05/16 06:06> Date of Encounter: 12/05/16 Time of Encounter: 13:21 Assessment and Plan (1) Right upper quadrant pain Current Visit: Yes Status: Acute - RUQ US on 12/01/2016 demonstrated minimal sludge present in the gallbladder with no identifiable stones - Abdominal MRI performed on 12/02/2016 showed no acute findings - Upper endoscopy performed on 12/02/[address] Grant showed findings consistent with peptic ulcer disease and recommended PPI therapy twice a day for 3 months along with Carafate twice a day for 1 month. - Repeat CT of the abdomen and pelvis on 12/03/16 again demonstrated no acute findings - HIDA scan performed on 12/04/2016 demonstrated a patent biliary tree along with normal GB EF of 69% Along with clinical condition with reproducible RUQ pain and noted pain on the CCK injection suggesting dyskinesia we will proceed with surgical intervention. NPO at midnight Pain control PPI and Carafate Supportive care and management IV fluids Consent Obtained Discussed the risks, benefits, alternatives, and outcomes with the patient and she is in agreement to proceed with laparoscopic cholecystectomy with Dr. Olson in the next 24 hours. (2) PUD (peptic ulcer disease) Current Visit: Yes Status: Acute Endoscopy performed by Dr. Grnat on 12/02/16. Of note, findings were consistent with Peptic Ulcer Disease. Recommended PPI BID x3 months, Carafate BID x1 month and repeat EGD in 2 months. (3) Migraine headache Current Visit: Yes Status: Acute Well controlled on Imitrex, fioricet. Qualifiers: Migraine type: without aura Status migrainosus presence: without status migrainosus Intractability: not intractable Qualified Code(s): G43.009 - Migraine without aura, not intractable, without status migrainosus (4) Depression with anxiety Current Visit: Yes Status: Chronic Her mother was murdered when she was 17 years old and the patient was the first to find her. She has been seeing a psychologist for a long time and been taking Xanax, Trazadone and Elavil. (5) Chronic back pain Current Visit: Yes Status: Chronic Applying for disability d/t this complaint. Qualifiers: Back pain location: low back pain Back pain laterality: bilateral Sciatica presence: without sciatica Qualified Code(s): M54.5 - Low back pain; G89.29 - Other chronic pain (6) Tobacco abuse Current Visit: Yes Status: Chronic Patient dropped from 3PPD to 1/2PPD within the last month. Claims she will not restart on discharge History of Present Illness Consult date: 12/04/16 Reason for consult: abdominal pain Requesting physician: Janie Stewart History of present illness: Ms. Alicea is a very pleasant 40-year-old female with a past medical history of migraines, Bipolar Disorder, depression, anxiety and chronic back pain who presented to the [facility] emergency room on Thursday , December 01, 2016 with a chief complaint of right upper quadrant abdominal pain for a duration of 1 week. She states the pain started last Thursday and started in her epigastric region and transitioned to her right upper quadrant. Patient describes the pain as "someone is pulling my intestines out" and is constant in nature. There was associated nausea and non-bloody emesis that followed. She denies any history of this complaint previously. She goes to states that she attempted to use Zantac, Pepto, Mylanta and Seven-Up without relief. She denies any action that worsens the pain. She worked through the pain throughout the week and decided to come to the emergency room the following Thursday. On arrival, vital signs stable, WBC elevated at 11.9, lipase neg 16, bili 0.4, AST 18 and ALT 14 with positive UA. Patient was started on IV hydration, pain control, anti-emetics and supportive care. Abdominal ultrasound in the ED demonstrated minimal sludge present without any identifiable stones as well as CT abd and pelvis showing no acute abnormalities. Ms. Alicea was subsequently admitted via the hospitlaist service for further workup and management. Of note, Abdominal MRI performed on 12/02/2016 showed no acute findings, Upper endoscopy performed on 12/02/[address] Grant showed findings consistent with peptic ulcer disease and recommended PPI therapy twice a day for 3 months along with Carafate twice a day for [address] of the abdomen and pelvis on 12/03/16 again demonstrated no acute findings. HIDA scan also performed on 12/04/2016 demonstrated a patent biliary tree along with normal GB EF of 69% and thus, surgery was consulted for recommendations. On evaluation, she goes on to report a history of abdominal surgeries to include a x1, tubal ligation and JANET/SBO 8 year ago. She routinely has a bowel movement every 2-3 days and her last BM was Thursday. She denies any fevers, change in vision, chest pain, shortness of breath, dysuria, LE edema, joint pain, change in mood. Past Med Surg Social Fam HX - Past Medical History Medical history: migraine, other (Chronic back pain) Psychiatric history: anxiety, depression - Past Surgical History Surgical History: , hysterectomy, orthopedic, other (Left ankle fracture repair, right leg fracture repair), JANET/BSO - Social History Smoking Status: Current every day smoker Packs per day: 1 Smokeless Tobacco Status: No Alcohol use: rarely Drug use: marijuana - Family History Mother Living Status: Age at : 34 Cause of : murdered Hx Family Endocrine Disorder: Yes Hx Family Musculoskeletal Disorders: Yes (back problem) Hx Family Psychosocial Disorders: (depression, anxiety) Hx Family Medical Disorders: (breast cysts) Father Age: 62 Living Status: Still Living Hx Family Cardiac Disorders: Yes (heart attack, stroke, heart disease.) Hx Family Respiratory Disorders: No Hx Family Cancer: No Hx Family Endocrine Disorder: Yes (diabetes) Hx Family Psychosocial Disorders: Yes (ptsd) Medications and Allergies Amitriptyline HCl 150 mg PO HS 08/27/16 [History] Butalbital/Aspirin/Caffeine [Fiorinal 50-325-40 mg Capsule] 1 cap PO DAILY PRN 08/27/16 [History] Promethazine [Phenergan] 25 mg PO Q12H PRN 08/27/16 [History] Ranitidine HCl [Zantac] 150 mg PO BID 08/27/16 [History] SUMAtriptan succinate [Imitrex] 6 mg SQ ONCE PRN 08/27/16 [History] Tizanidine HCl 4 mg PO BID 08/27/16 [History] Trazodone HCl 300 mg PO HS 08/27/16 [History] ALPRAZolam [Xanax 0.5 MG Tablet] 0.5 mg PO BID 12/01/16 [History] Gabapentin [Neurontin] 300 mg PO TID 12/01/16 [History] Ibuprofen [Ibuprofen] 800 mg PO TID PRN 12/01/16 [History] Allergies aripiprazole [From Abilify] Allergy (Verified 12/01/16 19:58) Rash codeine Allergy (Verified 12/01/16 19:58) See Comments RASH haloperidol [From Haldol] Allergy (Verified 12/01/16 19:58) Rash quetiapine [From Seroquel] Allergy (Verified 12/01/16 19:58) Rash [place] Allergy (Verified 12/01/16 19:58) Anaphylaxis Sulfa (Sulfonamide Antibiotics) Allergy (Verified 12/01/16 19:58) See Comments RASH Review of Systems All systems PM: See HPI. General Surgery Exam Initial Vital Signs Temp Pulse Resp BP Pulse Ox 97.6 F 101 16 144/101 96 12/01/16 12:51 12/01/16 12:51 12/01/16 12:51 12/01/16 12:51 12/01/16 12:51 - General physical appearance no distress, obese - Eyes normal ocular movement - ENT normal mucosa, atraumatic, normocephalic - Neck trachea midline - Respiratory normal expansion, normal respiratory effort, clear to auscultation - Cardiovascular Cardiovascular exam: Present: RRR, no murmurs/rubs/gallops - Abdomen Abdomen general surgery: Present: bowel sounds present, soft, tender, surgical scars. Absent: distended, guarding, rebound Abdominal Tenderness: Present: epigastic, RUQ - Integumentary Integumentary general surgery: Present: warm and dry - Neurologic Present: CN 2-12 grossly intact - Psychiatric Psychiatric general surgery: Present: appropriate, oriented to person, oriented to place, oriented to time, speech is normal, memory intact, tearful Exam Initial Vital Signs Temp Pulse Resp BP Pulse Ox 97.6 F 101 16 144/101 96 12/01/16 12:51 12/01/16 12:51 12/01/16 12:51 12/01/16 12:51 12/01/16 12:51 Results - Labs 12/03/16 04:21 12/03/16 06:36 Abnormal lab results RBC 3.74 M/mcL (3.82-4.97) L 12/03/16 04:21 Chloride 110 mEq/L (98-109) H 12/03/16 06:36 Glucose 114 mg/dL (70-99) H 12/03/16 06:36 POC Glucose 118 (58-89) H 12/04/16 05:34 Calcium 8.5 mg/dL (8.6-10.8) L 12/03/16 06:36 Albumin 3.4 g/dL (3.5-5.0) L 12/02/16 07:56 LDL Cholesterol, Calc 110 mg/dL (0-99) H 12/02/16 07:56 Urine Clarity Cloudy (Clear) A 12/01/16 15:48 Urine Ketones Trace mg/dL (Negative) H 12/01/16 15:48 Urine Bilirubin Small (Negative) H 12/01/16 15:48 Ur Leukocyte Esterase Moderate (Negative) H 12/01/16 15:48 Urine Microscopic WBC 30-50 per hpf (0-3) H 12/01/16 15:48 Ur Squamous Epith Cells Many per lpf (None-Few) H 12/01/16 15:48 Urine Mucus Moderate (Few) H 12/01/16 15:48 Urine Yeast Few per hpf (None Seen) H 12/01/16 15:48 Ur Culture Indicated? YES (NO) A 12/01/16 15:48 All other labs normal. - Imaging CT scan - abdomen: report reviewed, image reviewed US - abdomen: report reviewed Additional studies: MRI reviewed. HIDA reviewed. Endoscopy reviewed. Consult Discharge Plan - Plan Referrals: Haroon Aranda MD [Primary Care Provider] - <Igor Rebolledo - Last Filed: 12/05/16 10:56> Date of Encounter: 12/04/16 Review of Systems All systems PM: A 10-system review of systems was performed and is negative for pertinent findings except as documented above in the HPI. General Surgery Exam Initial Vital Signs Temp Pulse Resp BP Pulse Ox 97.6 F 101 16 144/101 96 12/01/16 12:51 12/01/16 12:51 12/01/16 12:51 12/01/16 12:51 12/01/16 12:51 Exam Initial Vital Signs Temp Pulse Resp BP Pulse Ox 97.6 F 101 16 144/101 96 12/01/16 12:51 12/01/16 12:51 12/01/16 12:51 12/01/16 12:51 12/01/16 12:51 Results - Labs 12/03/16 04:21 12/03/16 06:36 Abnormal lab results RBC 3.74 M/mcL (3.82-4.97) L 12/03/16 04:21 Chloride 110 mEq/L (98-109) H 12/03/16 06:36 Glucose 114 mg/dL (70-99) H 12/03/16 06:36 POC Glucose 118 (58-89) H 12/04/16 05:34 Calcium 8.5 mg/dL (8.6-10.8) L 12/03/16 06:36 Albumin 3.4 g/dL (3.5-5.0) L 12/02/16 07:56 LDL Cholesterol, Calc 110 mg/dL (0-99) H 12/02/16 07:56 Urine Clarity Cloudy (Clear) A 12/01/16 15:48 Urine Ketones Trace mg/dL (Negative) H 12/01/16 15:48 Urine Bilirubin Small (Negative) H 12/01/16 15:48 Ur Leukocyte Esterase Moderate (Negative) H 12/01/16 15:48 Urine Microscopic WBC 30-50 per hpf (0-3) H 12/01/16 15:48 Ur Squamous Epith Cells Many per lpf (None-Few) H 12/01/16 15:48 Urine Mucus Moderate (Few) H 12/01/16 15:48 Urine Yeast Few per hpf (None Seen) H 12/01/16 15:48 Ur Culture Indicated? YES (NO) A 12/01/16 15:48 All other labs normal. - Attending Attestation I examined this patient and my medical decision-making was reviewed with the Resident Physician. I agree with the documented findings, disposition and treatment plan as described except to the extent set forth below. The patient admits to a 5 day history of mid epigastric abdominal pain radiating to the back. Noted nausea and vomiting as well as some diarrhea. Pain is constant and is stabbing. She is tender to palpation in epigastric region. She has had a number of tests including gallbladder US, HIDA, MRCP, CT scan (times 2) and an EGD which did show several ulcers (duodenal and gastric). The ultrasound, HIDA scan, and CT scan images as well as MRI images were reviewed by me personally. The gallbladder ultrasound showed gallbladder sludge and a HIDA scan showed a normal ejection fraction. The patient admits to having reproducible. Epigastric abdominal pain with the CCK injection which I think may be related to biliary dyskinesia. Due to these findings I think it will be appropriate to proceed with a laparoscopic cholecystectomy. Risks and benefits have been discussed with the patient including possible non- alleviation of her abdominal pain and she agrees to the above plan.
[2016-12-04] MEDS: *HR* LORazepam 2 MG/ML VIAL IVP PRN (15:11)
--- NOTE | 2016-12-04 16:36 | Internal Med Progress Note ---
Date of Encounter: 12/04/16 Time of Encounter: 10:00 - Assessment and plan (1) Right upper quadrant pain Current Visit: Yes Status: Acute Assessment and plan: CT abdomen/pelvis showed no acute abnormality. Right upper quadrant ultrasound shows gallbladder sludge, mild delegation of CBD at 7 mm, with no definitive evidence of gallstones or acute cholecystitis. MRCP shows no evidence of biliary dilatation or choledocholithiasis. Hepatobiliary scan is completed, shows patent cystic and common bile ducts, normal gallbladder ejection fraction. Patient continues to be abdominal pain, crying constantly, requesting IV Dilaudid and IV Ativan. She is also noted to report 10/10 pain to several medical staff members upon walking in, although she is noted to play games on her phone and is comfortable and speaking with her family at other times. Continue bowel rest and IV hydration, pain control with PRN IV Dilaudid and PO Percocet. Supportive care and when necessary antiemetics. GI consulted, patient underwent EGD -showed significant gastritis and peptic ulcers and stomach and duodenal bulb. Continue twice daily IV Protonix along with sucralfate. Will consult Surgery for further recommendations. (2) Chronic back pain Current Visit: Yes Status: Chronic Qualifiers: Back pain location: low back pain Back pain laterality: bilateral Sciatica presence: without sciatica Qualified Code(s): M54.5 - Low back pain; G89.29 - Other chronic pain (3) Depression with anxiety Current Visit: Yes Status: Chronic Assessment and plan: Continue home regimen of antidepressants, anxiolytics and psychotropic medications. (4) Migraine headache Current Visit: Yes Status: Acute Qualifiers: Migraine type: without aura Status migrainosus presence: without status migrainosus Intractability: not intractable Qualified Code(s): G43.009 - Migraine without aura, not intractable, without status migrainosus (5) Tobacco abuse Current Visit: Yes Status: Chronic Assessment and plan: Continue nicotine transdermal patch. - Subjective Interval history: Continues to report 10/10 abdominal pain, that is now radiating to her mid back and down her left leg. She reports her pain to be constant, not relieved with IV Dilaudid. Also requests to have when necessary IV Ativan and instrument of oral Xanax. No nausea, vomiting, diarrhea. - Constitutional Vitals: Temp Pulse Resp BP Pulse Ox 98.5 F 65 16 109/72 94 07/27/17 11:44 12/04/16 11:44 12/04/16 11:44 12/04/16 14:40 12/04/16 11:44 General appearance: Present: A&O X 3 (tearful and depressed), answers questions appropriately - Respiratory Respiratory exam: Present: CTAB. Absent: accessory muscle use, rales, rhonchi, wheezes - Cardiovascular Cardiovascular exam: Present: RRR, +S1, +S2. Absent: diastolic murmur, gallop, rubs, systolic murmur - GI/Abdominal GI/Abdominal exam: Present: normal bowel sounds, soft (mild tenderness in epigastrium and RUQ), no peritoneal signs. Absent: distended, tenderness Internal Medicine: Result - Labs CBC & Chem 7: 12/03/16 04:21 12/03/16 06:36 - ABG Interpretation ABG results: PT/INR, D-dimer PT 11.2 Seconds (9.4-12.1) 12/02/16 07:56 - Impressions Impressions Abdomen/Pelvis CT 12/03/16 23:00 IMPRESSION: No acute findings. D/ / Wiliam Arciniega MD / Wiliam Arciniega MD Interpreting Provider: Wiliam Arciniega MD Liver Scan Nuclear Medicine 12/04/16 07:00 IMPRESSION: Common and cystic ducts are demonstrated as patent. Normal gallbladder ejection fraction, calculated as 69%. D/ / Isidoro Best MD / Isidoro Best MD Interpreting Provider: Isidoro Best MD Consult Discharge Plan - Plan Referrals: Haroon Aranda MD [Primary Care Provider] -
[2016-12-04] MEDS: traZODone 50 MG TABLET PO SCH (21:04)
[2016-12-05] MEDS: D5% in 0.45% NACL 1,000 ML IVC SCH (01:51)
[2016-12-05] MEDS: *HR* HYDROmorphone (PF) 1 MG/ML SYRINGE IVP PRN ×5 (03:18→22:58)
[2016-12-05] MEDS: *HR* Heparin 5,000 UNIT/ML VIAL SQ SCH ×2 (05:08→17:01)
[2016-12-05] MEDS: *HR* LORazepam 2 MG/ML VIAL IVP PRN (06:33)
--- NOTE | 2016-12-05 08:37 | Anesthesia Evaluation PreOp ---
Date of Encounter: 12/05/16 Time of Encounter: 08:35 - Past History Planned Operation: Lap. 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 MIRANDA) Other Medical History: GERD Anesthesia History: No Prior Anesthetic Complications, Past Anesthesia (ORIF Tibia, JANET) : No Test: Negative (12/01/2016) Alcohol Use: rarely Drug use: marijuana Medications and Allergies Amitriptyline HCl 150 mg PO HS 08/27/16 [History] Butalbital/Aspirin/Caffeine [Fiorinal 50-325-40 mg Capsule] 1 cap PO DAILY PRN 08/27/16 [History] Promethazine [Phenergan] 25 mg PO Q12H PRN 08/27/16 [History] Ranitidine HCl [Zantac] 150 mg PO BID 08/27/16 [History] SUMAtriptan succinate [Imitrex] 6 mg SQ ONCE PRN 08/27/16 [History] Tizanidine HCl 4 mg PO BID 08/27/16 [History] Trazodone HCl 300 mg PO HS 08/27/16 [History] ALPRAZolam [Xanax 0.5 MG Tablet] 0.5 mg PO BID 12/01/16 [History] Gabapentin [Neurontin] 300 mg PO TID 12/01/16 [History] Ibuprofen [Ibuprofen] 800 mg PO TID PRN 12/01/16 [History] Allergies aripiprazole [From Abilify] Allergy (Verified 12/01/16 19:58) Rash codeine Allergy (Verified 12/01/16 19:58) See Comments RASH haloperidol [From Haldol] Allergy (Verified 12/01/16 19:58) Rash quetiapine [From Seroquel] Allergy (Verified 12/01/16 19:58) Rash [place] Allergy (Verified 12/01/16 19:58) Anaphylaxis Sulfa (Sulfonamide Antibiotics) Allergy (Verified 12/01/16 19:58) See Comments RASH - Meds/Allergy Pre-op Review Medications Reviewed: Yes Allergies Reviewed: Yes Beta Blockers on Current Med List: No Anesthesia Results - Labs 12/03/16 04:21 12/03/16 06:36 Laboratory Tests 12/01/16 15:48 Urine Test Negative - Imaging EKG: image reviewed (SR) Anesthesia Exam O2 Sat Weight 79.8 kg Weight 78.13 kg O2 Sat by Pulse Oximetry 97 O2 Sat by Pulse Oximetry 94 O2 Sat by Pulse Oximetry 94 O2 Sat by Pulse Oximetry 94 O2 Sat by Pulse Oximetry 94 O2 Sat by Pulse Oximetry 94 O2 Sat by Pulse Oximetry 94 O2 Sat by Pulse Oximetry 94 Vital Signs Temp Pulse Resp BP Pulse Ox 97.6 F 101 16 144/101 96 12/01/16 12:51 12/01/16 12:51 12/01/16 12:51 12/01/16 12:51 12/01/16 12:51 Vital Signs/O2 Sat, Most Current Temp Pulse Resp BP Pulse Ox 98.5 F 74 16 105/69 97 12/05/16 06:32 12/05/16 06:32 12/05/16 06:32 12/05/16 06:32 12/05/16 06:32 Height: 5'3'' Weight: 175# - HEENT Pupil (Motor): Pupils equal, EOMI Mallampati: III Teeth: Normal Oral Opening: Greater than 3 - STAGE [employer]ICIAN HELPER LOC: Oriented [employer]AGE ELECT[employer]ICIAN HELPER Motor: Normal RUE, Normal LUE, Normal RLE, Normal LLE, Normal Face [employer]LECT[employer]ICIAN HELPER Sensory: Normal: RUE, LUE, RLE, LLE, Face - Cardiac Rhythm: Regular Murmur: None JVD: No Carotid Bruit: No - Pulmonary Breath Sounds: bilateral Clear Respiratory Effort: Symmetrical Anesthesia Assess/Plan ASA Score: 2 Modified Ciaran Scale for Level of Consciousness: Cooperative, oriented, and tranquil Anesthetic Plan: General Autologous Blood: Yes Monitoring Plan: Standard Monitors Recovery Plan: PACU
[2016-12-05] MEDS ORDERED: Lidocaine -MPF 2% 2 ML VIAL ONE (09:17)
[2016-12-05] MEDS ORDERED: *HR* Propofol 200 MG/20 ML VIAL IVP ONE (09:17)
[2016-12-05] MEDS ORDERED: Dexamethasone 4 MG/ML VIAL ONE (09:19)
[2016-12-05] MEDS ORDERED: *HR* Succinylcholine 200 MG/10 ML VIAL IVP ONE (09:19)
[2016-12-05] MEDS ORDERED: Ondansetron 4 MG/2 ML VIAL ONE (09:19)
[2016-12-05] MEDS ORDERED: Neostigmine Methylsulfate 3 MG/3 ML SYRINGE ONE (09:20)
[2016-12-05] MEDS ORDERED: *HR* Midazolam HCl 2 MG/2 ML VIAL ONE (09:49)
[2016-12-05] MEDS ORDERED: *HR* FentaNYL (PF) 100 MCG/2 ML VIAL ONE (09:50)
[2016-12-05] MEDS ORDERED: EPHEDrine 50 MG/ML VIAL ONE (10:22)
[2016-12-05] MEDS ORDERED: *HR* HYDROmorphone 2 MG/ML SYRINGE ONE (10:28)
[2016-12-05] MEDS ORDERED: *HR* HYDROmorphone (PF) 1 MG/ML SYRINGE IVP PRN (10:36)
--- NOTE | 2016-12-05 10:58 | Operative Note ---
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 After proper IV sedation was achieved followed by general endotracheal intubation, the patient's abdomen was prepped and draped in a normal sterile fashion. A timeout was performed noting the patient's name and type of procedure to be performed. A min bumbilical incision with an 11 blade scalpel was made down to the level of the rectus fascia. The rectus fascia was incised and the abdomen was entered and a 12 mm port was placed through the incision and the abdomen was insufflated with carbon dioxide. A laparoscopic camera was placed through the port which showed no injury to the intra-abdominal organs upon entry. A subxiphoid 12 mm port and a right subcostal margin 5 mm port were then placed under direct camera visualization. The patient was placed in a reverse Trendelenburg position and the gallbladder was examined and retracted superiorly/anteriorly with a non-traumatic grasper. The peritoneum overlying the infundibulum and cystic duct was bluntly dissected away with the [place] dissector. The cystic duct was isolated, clipped laparoscopic clips, and incised with laparoscopic scissors. The cystic artery was also identified, clipped with laparoscopic clips and incised with laparoscopic scissors. The gallbladder was carefully dissected off the gallbladder fossa with Bovie cauterization while Bovie cauterization was used to maintain hemostasis. Once the gallbladder was dissected free it was removed from the abdomen via an Endobag. The gallbladder fossa and hemostasis was maintained and the right upper quadrant was irrigated with normal saline solution until the effluent was clear. All ports were then removed from the abdomen after the abdomen was desufflated. The rectus fascia for the subumbilical incision was reapproximated with a figure -of-eight 0 Vicryl suture. The subcutaneous tissue was reapproximated with interrupted 3-0 Vicryl sutures. The epidermal and dermal layers for the remaining incisions were reapproximated with 4-0 Monocryl sutures. Needle, sponge, and instrument counts were correct 2 and the incisions were covered with Steri-Strips and Band-Aids. The patient was aroused from IV sedation, extubated in the operating room without complication, and transported to the recovery room in stable condition
[2016-12-05] MEDS ORDERED: Ringers Solution, Lactated 1,000 ML ONE (11:00)
[2016-12-05] MEDS: *HR* Promethazine 25 MG/ML VIAL IVP PRN ×2 (11:03→11:12)
--- NOTE | 2016-12-05 11:34 | Anesthesia Evaluation Post Op ---
Date of Encounter: 12/05/16 Time of Encounter: 11:32 - Vital Signs Vital Signs: Vital Signs/O2 Sat, Most Current Temp Pulse Resp BP Pulse Ox 99.1 F 80 13 124/82 94 12/05/16 10:55 12/05/16 11:25 12/05/16 11:25 12/05/16 11:25 12/05/16 11:25 - Lungs Lungs: Clear Ascult./Percussion - Airway Airway: Non-obstructed - Cardiovascular Regular Rate - Mental Status Mental Status: Alert & Oriented, Answers Appropriately - Pain Pain Scale: 4 Pain Scale used: Numeric (1 - 10) - Nausea Vomiting Nausea Vomiting: Not Present - Hydration Hydration: Ice chips, Has not voided - Discharge PostOp Status: Discharge Patient to home
[2016-12-05] MEDS ORDERED: Naloxone 0.4 MG/ML INJ IVP PRN (11:58)
[2016-12-05] MEDS ORDERED: *HR* LORazepam 2 MG/ML VIAL IVP PRN (11:58)
[2016-12-05] MEDS ORDERED: D5% in 0.45% NACL 1,000 ML IVC SCH (11:58)
[2016-12-05] MEDS ORDERED: Ondansetron 4 MG/2 ML VIAL IVP PRN (11:58)
[2016-12-05] MEDS ORDERED: *HR* OxyCODONE/APAP 5/325 TABLET PO PRN (11:58)
[2016-12-05] MEDS ORDERED: SUMAtriptan 6 MG/0.5 ML SQ PRN (11:58)
[2016-12-05] MEDS: Acetaminophen/Butalbital/CaffeineTABLET PO PRN (12:17)
[2016-12-05] MEDS: tiZANidine 4 MG TABLET PO SCH ×2 (13:10→23:38)
[2016-12-05] MEDS: Gabapentin 300 MG CAPSULE PO SCH ×2 (13:10→23:39)
[2016-12-05] MEDS: MetroNIDAZOLE 500 MG/100 ML 500 MG/100 ML BAG IVPB SCH ×2 (16:52→23:40)
[2016-12-05] MEDS: Sucralfate 1 GM TABLET PO SCH ×2 (16:53→23:39)
--- NOTE | 2016-12-05 18:07 | Internal Med Progress Note ---
Date of Encounter: 12/05/16 Time of Encounter: 18:06 - Assessment and plan (1) Right upper quadrant pain Current Visit: Yes Status: Acute Assessment and plan: Patient has negative imaging studies, but continues to have significant abdominal pain. Surgery consulted and patient underwent laparoscopic cholecystectomy today, for possible biliary dyskinesia. POD 0. Started regular diet per Surgery recommendations; Continue pain control with PRN PO Percocet and IV Dilaudid, encouraged to try oral meds more than IV, PRN antiemetics; supportive care, continue to monitor. GI consulted, patient underwent EGD -showed significant gastritis and peptic ulcers and stomach and duodenal bulb. Continue twice daily IV Protonix along with sucralfate. (2) Chronic back pain Current Visit: Yes Status: Chronic Qualifiers: Back pain location: low back pain Back pain laterality: bilateral Sciatica presence: without sciatica Qualified Code(s): M54.5 - Low back pain; G89.29 - Other chronic pain (3) Depression with anxiety Current Visit: Yes Status: Chronic Assessment and plan: Continue home regimen of antidepressants, anxiolytics and psychotropic medications. Will change benzodiazepines back to PO Xanax per home regimen, and discontinue IV Ativan. (4) Migraine headache Current Visit: Yes Status: Chronic Assessment and plan: recommend to stop ASA at home; continue PRN Fioricet and Sumatriptan; Qualifiers: Migraine type: without aura Status migrainosus presence: without status migrainosus Intractability: not intractable Qualified Code(s): G43.009 - Migraine without aura, not intractable, without status migrainosus (5) Tobacco abuse Current Visit: Yes Status: Chronic Assessment and plan: Continue nicotine transdermal patch. - Subjective Interval history: Underwent laparoscopic surgery today. Reports abdominal pain, diffuse but mainly at laparoscopy sites and RUQ; also has nausea, no vomiting; ate only a little bit of her dinner; - Constitutional Vitals: Temp Pulse Resp BP Pulse Ox 98.6 F 82 16 123/81 93 12/05/16 14:39 12/05/16 14:39 12/05/16 14:39 12/05/16 14:39 12/05/16 14:39 General appearance: Present: A&O X 3, answers questions appropriately - Respiratory Respiratory exam: Present: CTAB. Absent: accessory muscle use, rales, rhonchi, wheezes - Cardiovascular Cardiovascular exam: Present: RRR, +S1, +S2. Absent: diastolic murmur, gallop, rubs, systolic murmur - GI/Abdominal GI/Abdominal exam: Present: normal bowel sounds, soft (diffuse tenderness), no peritoneal signs. Absent: distended, tenderness Internal Medicine: Result - Labs CBC & Chem 7: 12/03/16 04:21 12/03/16 06:36 - ABG Interpretation ABG results: PT/INR, D-dimer PT 11.2 Seconds (9.4-12.1) 12/02/16 07:56 Consult Discharge Plan - Plan Referrals: aHroon Aranda MD [Primary Care Provider] -
[2016-12-05] MEDS: ALPRAZolam 0.5 MG TABLET PO PRN (19:07)
[2016-12-05] MEDS: *HR* OxyCODONE/APAP 5/325 TABLET PO PRN ×2 (19:09→23:39)
[2016-12-05] MEDS ORDERED: traZODone 50 MG TABLET PO SCH (21:00)
[2016-12-05] MEDS: Pantoprazole 40 MG VIAL IVP SCH (23:39)
[2016-12-06] MEDS: *HR* OxyCODONE/APAP 5/325 TABLET PO PRN ×2 (04:33→09:31)
[2016-12-06] MEDS: Sucralfate 1 GM TABLET PO SCH ×2 (06:39→11:24)
[2016-12-06] MEDS: *HR* Heparin 5,000 UNIT/ML VIAL SQ SCH (06:39)
[2016-12-06] MEDS: *HR* HYDROmorphone (PF) 1 MG/ML SYRINGE IVP PRN (06:40)
[2016-12-06] MEDS: Acetaminophen/Butalbital/CaffeineTABLET PO PRN (06:54)
[2016-12-06] MEDS: MetroNIDAZOLE 500 MG/100 ML 500 MG/100 ML BAG IVPB SCH (07:58)
[2016-12-06] MEDS: Gabapentin 300 MG CAPSULE PO SCH (07:58)
[2016-12-06] MEDS: tiZANidine 4 MG TABLET PO SCH (07:58)
[2016-12-06] MEDS: Pantoprazole 40 MG VIAL IVP SCH (07:58)
[2016-12-06] MEDS: Nicotine 14 MG PATCH.TD24 TD SCH ×2 (07:58→08:34)
[2016-12-06] MEDS: ALPRAZolam 0.5 MG TABLET PO PRN (09:33)
[2016-12-06 10:43] VITALS: BP 102/69
--- NOTE | 2016-12-06 12:37 | Discharge Summary ---
Date of Encounter: 12/06/16 Time of Encounter: 12:34 - Discharge Diagnosis (1) Right upper quadrant pain Priority: Primary Status: Acute (2) Chronic back pain Priority: Secondary Status: Chronic Qualifiers: Back pain location: low back pain Back pain laterality: bilateral Sciatica presence: without sciatica Qualified Code(s): M54.5 - Low back pain; G89.29 - Other chronic pain (3) Depression with anxiety Priority: Secondary Status: Chronic (4) Migraine headache Priority: Secondary Status: Chronic Qualifiers: Migraine type: without aura Status migrainosus presence: without status migrainosus Intractability: not intractable Qualified Code(s): G43.009 - Migraine without aura, not intractable, without status migrainosus (5) Tobacco abuse Priority: Secondary Status: Chronic - Discharge Medications Prescriptions: Acetaminophen/Butalbital/Caffe [Fioricet] 1 each PO DAILY PRN #30 tab PRN Reason: Headache use before Imitrex Omeprazole 20 mg PO BID #60 tablet. Ondansetron HCl [Zofran] 4 mg PO Q8H PRN #30 tablet PRN Reason: Nausea And Vomiting OxyCODONE/APAP 5/325 [Percocet 5/325 MG] 2 each PO Q6H PRN #20 tab PRN Reason: Pain Sucralfate [Carafate] 1 gm PO QIDAC #120 tab Home Medications: Amitriptyline HCl 150 mg PO HS 08/27/16 [History] SUMAtriptan succinate [Imitrex] 6 mg SQ ONCE PRN 08/27/16 [History] Tizanidine HCl 4 mg PO BID 08/27/16 [History] Trazodone HCl 300 mg PO HS 08/27/16 [History] ALPRAZolam [Xanax 0.5 MG Tablet] 0.5 mg PO BID 12/01/16 [History] Gabapentin [Neurontin] 300 mg PO TID 12/01/16 [History] Acetaminophen/Butalbital/Caffe [Fioricet] 1 each PO DAILY PRN #30 tab 12/06/16 [ Rx] Omeprazole 20 mg PO BID #60 tablet. 12/06/16 [Rx] Ondansetron HCl [Zofran] 4 mg PO Q8H PRN #30 tablet 07/29/17 [Rx] OxyCODONE/APAP 5/325 [Percocet 5/325 MG] 2 each PO Q6H PRN #20 tab 12/06/16 [Rx] Sucralfate [Carafate] 1 gm PO QIDAC #120 tab 12/06/16 [Rx] Allergies/Adverse Reactions: Allergies aripiprazole [From Abilify] Allergy (Verified 12/01/16 19:58) Rash codeine Allergy (Verified 12/01/16 19:58) See Comments RASH haloperidol [From Haldol] Allergy (Verified 12/01/16 19:58) Rash quetiapine [From Seroquel] Allergy (Verified 12/01/16 19:58) Rash [place] Allergy (Verified 12/01/16 19:58) Anaphylaxis Sulfa (Sulfonamide Antibiotics) Allergy (Verified 12/01/16 19:58) See Comments RASH Date of admission: 12/05/16 17:25 Primary care physician: Haroon Aranda MD Discharging clinician: Janie Stewart Anticipated date of discharge: 12/06/16 - Patient Status Disposition: Home, Self-Care Condition: Good Functional capacity at discharge: independent ambulation Overall status at discharge: patient is progressing back to baseline - Discharge Instructions Instructions: Sucralfate (By mouth), Oxycodone/Acetaminophen (By mouth), Ondansetron (By mouth) Follow Up With: Haroon Aranda MD [Primary Care Provider] - Additional Instructions: F/up with PCP in 1-2 weeks F/up with Surgery in 2-3 weeks - Diet and Activity Activity: resume usual activities as tolerated (do not lift heavy weights>20lb for 1 week) Diet: advance to your usual diet, low fat, low cholesterol, low salt diet Hospital course: Ms. Alicea is a 40 year old female with history of chronic pain and depression , was admitted with right upper quadrant abdominal pain, nausea and vomiting. CT abdomen/pelvis done in the emergency room showed no evidence of acute abnormality. Patient was started on conservative medical management with bowel rest, IV hydration, empiric IV antibiotics, supportive care with when necessary antiemetics and pain control. LFTs, serum amylase and lipase were noted to be normal. Patient continued to report significant pain and demanded increasing doses of IV Dilaudid and Ativan. Right upper quadrant ultrasound was done which showed some gallbladder sludge with no evidence of cholecystitis or cholelithiasis. MRCP was done which showed no evidence of choledocholithiasis or biliary dilatation. GI was consulted and recommended conservative management. HIDA scan was done which showed normal ejection fraction and no acute abnormality of the gallbladder. Surgery was consulted due to patient's intractable symptoms and patient underwent laparoscopic cholecystectomy for possible biliary dyskinesia. Patient had an uneventful postoperative recovery, tolerates oral diet with significant improvement in her abdominal pain. She is currently medically stable for discharge with outpatient follow-up. - Time Spent with Patient Total time spent providing and/or coordinating discharge services: Greater than 30 minutes (45 min) - Constitutional Vitals: Temp Pulse Resp BP Pulse Ox 98.1 F 91 16 102/69 94 12/06/16 10:34 12/06/16 10:34 12/06/16 10:34 12/06/16 10:34 12/06/16 10:34 General appearance: Present: A&O X 3, answers questions appropriately - GI/Abdominal GI/Abdominal exam: Present: normal bowel sounds, soft (tenderness over RUQ and periumbilical area, around laparoscopy entry sites), no peritoneal signs. Absent: distended, tenderness
== END 2016-12-06 14:18 | disposition home or self-care (01) | DRG 263 ==
LOC: 3ANU 12:49 → EMEROO 12:49 → 3ANU 20:40 → SUATTDRO 21:39
PROVIDERS: ADMIT Internal Medicine; ATTEND Internal Medicine